=== PATIENT | male | born 1990 | race American Indian/Alaskan Native ===

== ENCOUNTER 2019-10-19 16:03 | Emergency (ER) | payer SELFPAY ==
[2019-10-19 16:10] VITALS: BP 157/99
--- NOTE | 2019-10-19 17:16 | Emergency Department Report ---
Chief Complaint: Dental/Oral Stated Complaint: RT SIDE TOOTHACHE PAIN Time Seen by Provider: 10/19/19 16:43 - HPI History of Present Illness: 29-year-old -[place] male patient presents with complaints of right lower dental pain for the past 2 days. Patient states the dental pain started about 2 months ago and he has been following with a dental specialist. He reports he was placed on penicillin and ibuprofen 1 month ago and his pain improved. He is scheduled for a dental extraction on 10/24/2019. He denies any fever/chills/sweats, however he does report mild right facial swelling without erythema. He also denies any difficulty swallowing or bleeding of his gums. - Exam Vital Signs: Vital Signs 10/19/19 16:08 Temperature 98.9 F Pulse Rate 76 Respiratory 18 Rate Blood Pressure 157/99 O2 Sat by Pulse 100 Oximetry MSE screening note: Focused history and physical exam performed. Due to findings the following was ordered: ED Disposition for MSE Condition: Stable
[2019-10-19] MEDS ORDERED: oxyCODONE 5 MG TAB PO ONE (17:24)
[2019-10-19] MEDS ORDERED: oxyCODONE /ACETAMINOPHEN 5-325MG TAB ONE (17:27)
--- NOTE | 2019-10-19 17:35 | Emergency Department Report ---
ED ENT HPI - General Chief complaint: Dental/Oral Stated complaint: RT SIDE TOOTHACHE PAIN Time Seen by Provider: 10/19/19 16:43 Source: patient Mode of arrival: Ambulatory Limitations: No Limitations - History of Present Illness Initial comments: 29-year-old -[place] male patient presents with complaints of right lower dental pain for the past 2 days. Patient states the dental pain started about 2 months ago and he has been following with a dental specialist. He reports he was placed on penicillin and ibuprofen 1 month ago and his pain im proved. He is scheduled for a dental extraction on 10/24/2019. He denies any fever/chills/sweats, however he does report right facial swelling without erythema. He also denies any difficulty swallowing or bleeding of his gums. - Related Data Previous Rx's Medication Instructions Recorded Last Taken Type Clindamycin [Clindamycin CAP] 300 mg PO Q6H 10 Days #40 capsule 10/19/19 Unknown Rx Ibuprofen [Motrin 800 MG tab] 800 mg PO Q8HR PRN #21 tablet 10/19/19 Unknown Rx traMADoL [Ultram 50 MG tab] 50 - 100 mg PO Q6HR PRN #20 tablet 10/19/19 Unknown Rx Allergies Allergy/AdvReac Type Severity Reaction Status Date / Time acetaminophen [From Tylenol] Allergy Rash Verified 10/19/19 16:05 ED Dental HPI - General Chief complaint: Dental/Oral Stated complaint: RT SIDE TOOTHACHE PAIN Time Seen by Provider: 10/19/19 16:43 Source: patient Mode of arrival: Ambulatory Limitations: No Limitations - Related Data Previous Rx's Medication Instructions Recorded Last Taken Type Clindamycin [Clindamycin CAP] 300 mg PO Q6H 10 Days #40 capsule 10/19/19 Unknown Rx Ibuprofen [Motrin 800 MG tab] 800 mg PO Q8HR PRN #21 tablet 10/19/19 Unknown Rx traMADoL [Ultram 50 MG tab] 50 - 100 mg PO Q6HR PRN #20 tablet 10/19/19 Unknown Rx Allergies Allergy/AdvReac Type Severity Reaction Status Date / Time acetaminophen [From Tylenol] Allergy Rash Verified 10/19/19 16:05 ED Review of Systems ROS: Stated complaint: RT SIDE TOOTHACHE PAIN Other details as noted in HPI Constitutional: denies: chills, diaphoresis, fever, weakness ENT: dental pain. denies: throat pain Respiratory: denies: cough, shortness of breath Cardiovascular: denies: chest pain, palpitations Gastrointestinal: denies: nausea, vomiting Skin: denies: rash, lesions Neurological: denies: headache, weakness, paresthesias ED Past Medical Hx - Past Medical History Previous Medical History?: Yes Additional medical history: toothache, Eczema - Surgical History Past Surgical History?: No - Social History Smoking Status: Never Smoker Substance Use Type: None - Medications Home Medications: Home Medications Medication Instructions Recorded Confirmed Last Taken Type Clindamycin [Clindamycin CAP] 300 mg PO Q6H 10 Days #40 capsule 10/19/19 Unknown Rx Ibuprofen [Motrin 800 MG tab] 800 mg PO Q8HR PRN #21 tablet 10/19/19 Unknown Rx traMADoL [Ultram 50 MG tab] 50 - 100 mg PO Q6HR PRN #20 tablet 10/19/19 Unknown Rx ED Physical Exam - General Limitations: No Limitations General appearance: alert, other (Patient appears uncomfortable and is in obvious pain holding the right side of his face with his hand) - Head Head exam: Present: atraumatic, normocephalic, other (Mild right facial swelling noted without significant erythema) - Eye Eye exam: Present: normal appearance. Absent: scleral icterus - ENT ENT exam: Present: other - Expanded ENT Exam Expanded Mouth exam: Absent: drooling, trismus Teeth exam: Present: dental caries, fractured tooth # 1 - Fractured, Dental Tenderness, Other (Erythema, swelling, and significant tenderness noted. Unable to visualize head of abscess) - Neck Neck exam: Present: normal inspection, full ROM. Absent: tenderness, l ymphadenopathy - Respiratory Respiratory exam: Present: normal lung sounds bilaterally. Absent: respiratory distress - Cardiovascular Cardiovascular Exam: Present: regular rate, normal rhythm. Absent: systolic murmur, diastolic murmur, rubs, gallop - Neurological Exam Neurological exam: Present: alert, oriented X3 - Psychiatric Psychiatric exam: Present: normal affect, normal mood - Skin Skin exam: Present: warm, dry, intact, normal color. Absent: rash, diaphoretic ED Course Vital Signs 10/19/19 10/19/19 16:08 17:33 Temperature 98.9 F Pulse Rate 76 Respiratory 18 20 Rate Blood Pressure 157/99 O2 Sat by Pulse 100 Oximetry - Nerve Block Consent Obtained: verbal consent Local Anesthetic Used: Marcaine 0.25% Amount of anesthesia used: 1 (ml) Side: right Intraoral Nerve Block: inferior alveolar Procedure Successful: Yes Complications: none Patient Tolerated Procedure: well ED Medical Decision Making - Medical Decision Making Patient here with complaints of right lower dental pain for 2 days. He is currently following with a dental specialist and is scheduled for tooth extraction on 10/24/2019. On exam he has moderate erythema and swelling of the oral mucosa surrounding the right lower fractured molar tooth and mild swelling of the face. Inferior alveolar block was performed and patient was given ibuprofen and oxycodone. His vitals are stable he states his pain has resolved. He is stable for discharge home and follow-up with his dental specialist. Prescription for clindamycin tramadol and ibuprofen given. Strict return precautions were discussed in great detail with patient who verbalizes understanding. Critical care attestation.: If time is entered above; I have spent that time in minutes in the direct care of this critically ill patient, excluding procedure time. ED Disposition Clinical Impression: Dental abscess, Pain, dental Disposition: [id number] TO HOME OR SELFCARE Is pt being admited?: No Condition: Stable Instructions: Dental Abscess (ED) Prescriptions: Clindamycin [Clindamycin CAP] 300 mg PO Q6H 10 Days #40 capsule Ibuprofen [Motrin 800 MG tab] 800 mg PO Q8HR PRN #21 tablet PRN Reason: pain traMADoL [Ultram 50 MG tab] 50 - 100 mg PO Q6HR PRN #20 tablet PRN Reason: Pain , Severe (7-10) Forms: Work/School Release Form(ED)
== END 2019-10-19 18:23 | disposition home or self-care (01) ==
LOC: ED 16:03
DX: K04.7 Periapical abscess without sinus (principal); K08.89 Other specified disorders of teeth and supporting structures; Z88.6 Allergy status to analgesic agent
CPT/HCPCS: 99282